=== PATIENT | male | born 1990 | race Hispanic/Latino ===

== ENCOUNTER 2018-07-07 07:30 | Emergency (ER) | payer SELFPAY ==
[2018-07-07] MEDS ORDERED: Ketorolac Tromethamine 30 MG/ML VIAL ONE (09:03)
== END 2018-07-07 09:40 | disposition home or self-care (01) ==
LOC: ERS 07:30
DX: M54.5 Low back pain (principal)
CPT/HCPCS: 96372; J1885

== ENCOUNTER 2018-10-17 19:09 | Emergency (ER) | payer SELFPAY ==
[2018-10-17] MEDS ORDERED: HYDROcodone/Acetaminophen 5/325 mg Tablet ONE (20:28)
[2018-10-17] MEDS ORDERED: Ketorolac Tromethamine 60 MG/2 ML VIAL ONE (20:36)
== END 2018-10-17 20:55 | disposition home or self-care (01) ==
LOC: ERS 19:09
DX: M62.830 Muscle spasm of back (principal)
CPT/HCPCS: 96372; J1885

== ENCOUNTER 2019-02-25 10:32 | Emergency (ER) | payer SELFPAY | END 2019-02-25 11:08 | disposition home or self-care (01) | LOC: ERS 10:32 | DX: M54.40 Lumbago with sciatica, unspecified side (principal) | CPT/HCPCS: 99283 ==

== ENCOUNTER 2019-03-03 05:38 | Emergency (ER) | payer SELFPAY ==
[2019-03-03] MEDS ORDERED: Ketorolac Tromethamine 30 MG/ML VIAL ONE ×2 (06:31→06:33)
== END 2019-03-03 06:55 | disposition home or self-care (01) ==
LOC: ERS 05:38
DX: M54.42 Lumbago with sciatica, left side (principal)
CPT/HCPCS: 96372; J1885

== ENCOUNTER 2019-06-15 11:53 | Emergency (ER) | payer SELFPAY ==
[2019-06-15] MEDS ORDERED: Ketorolac Tromethamine 60 MG/2 ML VIAL ONE (12:40)
== END 2019-06-15 12:50 | disposition home or self-care (01) ==
LOC: ERS 11:53
DX: M54.6 Pain in thoracic spine (principal)
CPT/HCPCS: 96372; 99283; J1885

== ENCOUNTER 2019-10-10 16:52 | Emergency (ER) | payer SELFPAY ==
--- NOTE | 2019-10-10 17:34 | RAD ---
RADIOGRAPH CHEST 2 VIEWS: DATE: HISTORY: Chest pain FINDINGS: The lungs are clear. The cardiomediastinal silhouette and hilar shadows appear normal. There is no pl eural effusion or pneumothorax. No osseous abnormality is identified. IMPRESSION: Normal
[2019-10-10] MEDS ORDERED: Ketorolac Tromethamine 60 MG/2 ML VIAL ONE (17:49)
[2019-10-10 18:01] LABS: #Eosinphils 0.2 thou/uL (0.0-0.7); #Lymphocytes 2.1 thou/uL (1.20-3.40); #Monocytes 0.6 thou/uL (0.11-0.59); #Neutrophils 4.2 thou/uL (1.40-6.50); %Basophils 0.4 % (0.0-1.0); %Eosinophils 2.3 % (0.0-10.0); %Lymphocytes 29.7 % (21.0-51.0); %Monocytes 8.3 % (0.0-10.0); %Neutrophils 59.2 % (42.0-75.0); Mean Corpuscular HGB CONC 35.7 g/dL (32.0-36.0); Mean Corpuscular Hemoglobin 31.8 pg (27.0-31.0); Mean Corpuscular Volume 89.1 fL (78.0-98.0); Mean Platelet Volume 7.3 fL (7.4-10.4); Platelet Count 308 thou/uL (130-400); RBC Distribution Width 11.2 % (11.5-14.5); Red Blood Cell (RBC) Count 5.03 mill/uL (4.70-6.10); White Blood Cell (WBC) Count 7.1 thou/uL (4.8-10.8)
[2019-10-10 18:25] LABS: ALT (SGPT) 59 U/L (8-55); AST (SGOT) 30 U/L (5-34); Albumin 4.7 g/dL (3.5-5.0); Alkaline Phosphatase 93 U/L (40-110); Anion Gap 12 mmol/L (10-20); BUN (Urea Nitrogen) 14 mg/dL (8.9-20.6); Bilirubin, Total 0.4 mg/dL (0.2-1.2); CK (CPK) 191 U/L (30-200); Calc. Creatinine Clearance 0 mL/min (70-130); Calcium 9.6 mg/dL (7.8-10.44); Carbon Dioxide 25 mmol/L (22-29); Chloride 103 mmol/L (98-107); Estimated GFR-MDRD Greater than 90; Glucose 93 mg/dL (70-105); Lipase 12 U/L (8-78); Potassium 4.2 mmol/L (3.5-5.1); Protein, Total 7.7 g/dL (6.0-8.3); Sodium 136 mmol/L (136-145)
== END 2019-10-10 19:14 | disposition home or self-care (01) ==
LOC: ERS 16:52
DX: R09.1 Pleurisy (principal); F17.210 Nicotine dependence, cigarettes, uncomplicated
CPT/HCPCS: 36415; 71046; 80053; 82550; 83690; 84484; 85025; 85379; 93005; 96372; J1885